=== PATIENT | female | born 1965 ===

== ENCOUNTER → 2022-05-04 10:00 | Outpatient (CLI) | payer OTHER | END | disposition home or self-care (01) | LOC: LAB 10:00 | PROVIDERS: ATTEND General Practice | DX: I10 Essential (primary) hypertension (principal); R53.1 Weakness; E66.01 Morbid (severe) obesity due to excess calories; Z13.1 Encounter for screening for diabetes mellitus; M17.0 Bilateral primary osteoarthritis of knee; M85.80 Other specified disorders of bone density and structure, unspecified site; R10.9 Unspecified abdominal pain; Z12.11 Encounter for screening for malignant neoplasm of colon ==

== ENCOUNTER 2022-05-07 10:19 | Outpatient (CLI) | payer OTHER | END 2022-05-07 10:20 | disposition home or self-care (01) | LOC: LAB 10:19 | PROVIDERS: ATTEND General Practice | DX: I10 Essential (primary) hypertension (principal); R53.1 Weakness; E66.01 Morbid (severe) obesity due to excess calories; Z13.1 Encounter for screening for diabetes mellitus; M17.0 Bilateral primary osteoarthritis of knee; M85.80 Other specified disorders of bone density and structure, unspecified site; R10.9 Unspecified abdominal pain; Z12.11 Encounter for screening for malignant neoplasm of colon ==

== ENCOUNTER 2022-05-09 09:58 | Outpatient (CLI) | payer OTHER | END 2022-05-09 10:14 | disposition home or self-care (01) | LOC: RAD 09:58 | PROVIDERS: ATTEND General Practice | DX: Z12.31 Encounter for screening mammogram for malignant neoplasm of breast (principal); R10.9 Unspecified abdominal pain; I10 Essential (primary) hypertension ==